=== PATIENT | male | born 1990 | race Caucasian/White ===

== ENCOUNTER 2017-06-01 22:21 | Emergency (ER) | payer OTHER ==
[2017-06-01 22:25] VITALS: TEMP 97.9
--- NOTE | 2017-06-01 22:27 | EDPHY ---
H & P Stated Complaint: swelling around eyes, allergy? HPI/ROS: HPI CHIEF COMPLAINT: Periorbital swelling, allergic reaction HISTORY OF PRESENT ILLNESS: This patient 27-year-old male, otherwise healthy does have a remote history of anaphylaxis with tongue swelling that required hospital admission. This was Back in 2012. He was seen by an technical instructor and was allergic to pollen. He was out running this evening he was undergoing 6 mi run and at the end the run he noticed some swelling around his eyes. No trouble breathing. He decided come the emergency room. This was around 8:00 p.m. at night or 2.5 hours ago. Upon arrival to the emergency room is stable vital signs. No urticaria. No trouble swallowing. No tongue swelling. His swelling is noted to be periorbital only. No stridor. Denies nausea vomiting or diarrhea. Past Medical History: No significant medical history except for a remote episode 2012 of anaphylaxis with tongue swelling requiring hospital admission. Past Surgical History: No significant surgical history Social History: [employer] PhD student. Denies drugs alcohol tobacco products. Does not carry an EpiPen. Family History: Noncontributory ROS REVIEW OF SYSTEMS: A comprehensive 10 point review of systems is otherwise negative aside from elements mentioned in the history of present illness. Exam Constitutional triage nursing summary reviewed, vital signs reviewed, awake/ alert. Eyes periorbital swelling. Posterior pharynx normal. No stridor. Uvula midline. Tongue normal. No signs of Edwin's. No tongue swelling. No asymmetrical or pharyngeal swelling. No stridor. HENT normal inspection, atraumatic, moist mucus membranes, no epistaxis, neck supple/ no meningismus, no raccoon eyes. Respiratory clear to auscultation bilaterally, normal breath sounds, no respiratory distress, no wheezing. Cardiovascular rate normal, regular rhythm, no murmur, no edema, distal pulses normal. Gastrointestinal soft, non-tender, no rebound, no guarding, normal bowel sounds, no distension, no pulsatile mass. Genitourinary no CVA tenderness. Musculoskeletal no midline vertebral tenderness, full range of motion, no calf swelling, no tenderness of extremities, no meningismus, good pulses, neurovascularly intact. Skin no urticaria present. No rash. pink, warm, & dry, no rash, skin atraumatic. Neurologic awake, alert and oriented x 3, AAOx3, moves all 4 extremities equally, motor intact, sensory intact, CN II-XII intact, normal cerebellar, normal vision, normal speech. Psychiatric normal mood/affect. Heme/Lymph/Immune no lymphadenopathy. Differential Diagnosis: Includes but is not limited to in a particular order acute allergic reaction, exercise-induced allergic reaction, pollen exposure, anaphylaxis, angioedema, no signs of preseptal or septal infection. This appears to be edematous soft periorbital swelling consistent acute allergic reaction. Medical Decision Making: Plan for this patient IV established with IV Solu- Medrol dose, IV Benadryl and IV Pepcid. Close observation for further allergic reaction. Will monitor for few hours to make sure this does not progress. Re-evaluation: 1258: Patient has been observed here for multiple hours he is eager to be discharged in fact asked the nurse multiple times to go home. He has not had any progression of symptoms specifically denies trouble swallowing trouble breathing shortness of breath or oropharyngeal swelling. I did review his periorbital edema it has improved however not completely gone. I did give this patient strict return precautions he understands return immediately to emergency room if this gets worse. Benadryl for 3 days prednisone for 3 days. EpiPen prescription. Additionally understands return emergency room if worsening symptoms. Return precautions given. As well as rebound reaction precautions given. He has been here close to 3 hours he did not receive epinephrine he has not had any progression of his reaction I do not feel that he needs to be admitted the hospital however he understands of any this gets worse he he needs to return. Source: Patient - Personal History Current Tetanus/Diphtheria Vaccine: Yes - Medical/Surgical History Hx Asthma: No Hx Chronic Respiratory Disease: No Hx Diabetes: No Hx Cardiac Disease: No Hx Renal Disease: No Hx Cirrhosis: No Hx Alcoholism: No Hx HIV/AIDS: No Hx Splenectomy or Spleen Trauma: No Other PMH: PSHx: L arm. PMHx: depression, exercise induced asthma - Social History Smoking Status: Never smoked Constitutional: Initial Vital Signs Temperature (C) 36.6 C 06/01/17 22:22 Heart Rate 65 06/01/17 22:22 Respiratory Rate 16 06/01/17 22:22 Blood Pressure 124/77 H 06/01/17 22:22 O2 Sat (%) 95 06/01/17 22:22 O2 Delivery Mode Room Air Allergies/Adverse Reactions: cedarwood Allergy (Verified 06/01/17 22:22) Sulfa (Sulfonamide Antibiotics) Allergy (Verified 06/01/17 22:22) wheat Allergy (Verified 06/01/17 22:22) Home Medications: Medication Instructions Recorded EPINEPHrine [Epipen 0.3 MG] 0.3 mg IM ONCE #2 syr 06/01/17 Zoloft 50mg (*) 06/01/17 diphenhydrAMINE [Benadryl 25 MG 25 mg PO BID #6 tab 06/01/17 (*)] predniSONE 60 mg PO DAILY #9 tab 06/01/17 Medical Decision Making - Data Points Medications Given: Discontinued Medications Diphenhydramine HCl (Benadryl Injection) 50 mg IVP EDNOW ONE Stop: 06/01/17 22:32 Last Admin: 06/01/17 22:40 Dose: 50 mg Famotidine 20 mg/ Sodium (Chloride) 102 mls @ 408 mls/hr IV EDNOW ONE Stop: 06/01/17 22:45 Last Admin: 06/01/17 22:40 Dose: 102 mls Methylprednisolone Sodium Succinate (Solu-Medrol) 125 mg IVP EDNOW ONE Stop: 06/01/17 22:32 Last Admin: 06/01/17 22:40 Dose: 125 mg Methylprednisolone Sodium Succinate (Solu-Medrol) 125 mg IVP EDNOW ONE Stop: 06/01/17 22:32 Last Admin: 06/01/17 23:01 Dose: Not Given Departure - Departure Disposition: Home, Routine, Self-Care Clinical Impression: Allergic reaction Qualifiers: Encounter type: initial encounter Qualified Code(s): T78.40XA - Allergy, unspecified, initial encounter Condition: Good Instructions: Anaphylaxis (ED), Allergies (ED) Additional Instructions: 1. Return immediately to the emergency room if he develops worsening allergic reaction this includes trouble swallowing trouble breathing swelling. 2. Take Benadryl for the next 3 days. 3. Take prednisone for the next 3 days. 4. Recommend carrying an epinephrine pen with you. 5. Follow up with your technical instructor. Referrals: NONE *PRIMARY CARE P,. [Primary Care Provider] - As per Instructions Prescriptions: diphenhydrAMINE [Benadryl 25 MG (*)] 25 mg PO BID #6 tab EPINEPHrine [Epipen 0.3 MG] 0.3 mg IM ONCE #2 syr predniSONE 60 mg PO DAILY #9 tab
[2017-06-01] MEDS ORDERED: methylPREDNISolone SOD SUCC 125 MG/2 ML VIAL IVP ONE ×2 (22:31)
[2017-06-01] MEDS ORDERED: FAMOTIDINE 20 MG in NS 100 ML IV ONE (22:31)
[2017-06-02 01:12] VITALS: BP 111/78; PULSE 63; RESP 14; O2SAT 95
== END 2017-06-02 01:10 | disposition home or self-care (01) ==
DX: T78.40XA Allergy, unspecified, initial encounter (principal)
CPT/HCPCS: 96374; J1200; J2930